=== PATIENT | female | born 1970 | race Caucasian/White ===

== ENCOUNTER 2021-05-11 15:32 | Observation (INO) | payer MEDICAID, SELFPAY ==
[2021-05-11 15:39] VITALS: BP 151/106; PULSE 129; RESP 18; TEMP 36.4; O2SAT 99
--- NOTE | 2021-05-11 15:41 | ECG_ITS ---
Measurements Intervals [place] Rate: 102 P: 66 GA: 146 QRS: 12 QRSD: 93 T: 72 QT: 348 QTc: 454 Interpretive Statements SINUS TACHYCARDIA DELAYED PRECORDIAL R/S TRANSITION INFERIOR INFARCT, AGE INDETERMINATE BORDERLINE T WAVE ABNORMALITY- HIGH LATERAL LEADS ABNORMAL ECG Electronically Signed On 05-11-2021 18:46:39 CDT by Braydon Das D.O.
[2021-05-11 16:32] LABS: Basophils Percent Auto 0.3 % (0.2-1.2); Eosinophils Absolute Auto 0.2 K/mm3 (0-0.3); Eosinophils Percent Auto 1.8 % (0-4.4); Hematocrit 45.4 % (37.0-47.0); Hemoglobin 15.2 g/dL (12.0-15.0); Immature Granulocyte Absolute 0.04 K/mm3 (0.00-0.031); Immature Granulocyte Percent A 0.4 % (0-0.5); Immature Platelet Fraction Pct 2.6 % (0.9-11.2); Lymphocytes Absolute Auto 2.58 K/mm3 (0.9-3.2); Lymphocytes Percent Auto 27.7 % (18.3-44.2); Mean Corpuscular HGB Conc 33.5 g/dl (32-36); Mean Corpuscular Hemoglobin 29.6 pg (26-34); Mean Corpuscular Volume 88.3 fl (80-100); Mean Platelet Volume 9.2 fl (7.4-10.4); Monocytes Absolute Auto 0.5 K/mm3 (0.1-0.6); Monocytes Percent Auto 5.5 % (2.6-8.5); Neutrophils Percent Auto 64.3 % (45.5-73.1); Platelet Count Result 306 k/mm3 (150-375); Red Blood Count 5.14 M/mm3 (4.2-5.4); Red Cell Distribution Width 12.2 % (11.5-14.5); White Blood Count 9.3 K/mm3 (4.5-10.0)
[2021-05-11 16:37] LABS: Add Urine Microscopic? YES; Appearance Urine Cloudy (Clear); Bacteria Urine 3+ /hpf; Bilirubin Urine Negative (Negative); Blood Urine 1+ (Negative); Color Urine Amber (Yellow); Glucose Urine UA Negative (Negative); Ketones Urine 1+ mg/dL (Negative); Leukocyte Esterase Ur 3+ LEU/UL (Negative); Mucus Urine Heavy /lpf; Nitrate Urine Positive (Negative); Protein Urine 1+ mg/dL (Negative); Specific Grav Ur 1.025 (1.001-1.035); Squamous Epithelial Cell Urine Many /hpf (Few); Urobilinogen Urine Negative mg/dL (<2.0); WBC Urine >75 /hpf
[2021-05-11 16:39] LABS: Ethanol < 10 mg/dL (<10)
[2021-05-11 16:40] LABS: Alanine Aminotransferase 17 U/L (4-35); Albumin Level 4.9 g/dL (3.5-5.1); Alkaline Phosphatase 69 U/L (38-126); Anion Gap 15 mmol/L (8-16); Aspartate Amino Transferase 28 U/L (14-36); Bilirubin,Total 0.8 mg/dL (0.2-1.3); Blood Urea Nitrogen 17 mg/dL (7-17); Calcium 10.3 mg/dL (8.4-10.2); Carbon Dioxide 24 mmol/L (22-30); Chloride 102 mmol/L (98-107); Estimated CRCL calculation 52 ml/min; Estimated Glomerular Filt Rate 53; Glucose 112 mg/dL (65-105); Potassium 3.9 mmol/L (3.4-5.0); Sodium 141 mmol/L (137-145)
[2021-05-11 17:08] LABS: Barbiturate Screen Urine Negative (Negative); Benzodiazepines Screen Urine Negative (Negative)
[2021-05-11 17:10] LABS: Cannabinoid Screen Urine Negative (Negative); Cocaine Screen Urine Negative (Negative); Methadone Screen Urine Negative (Negative); Opiate Screen Urine Negative (Negative); Phencyclidine Screen Urine Negative (Negative)
[2021-05-11 17:50] LABS: Lactic Acid Reflex 1.1 mmol/L (0.7-2.1)
[2021-05-11 18:00] LABS: Creatine Kinase 46 U/L (30-135)
--- NOTE | 2021-05-11 18:01 | ED.GENADULT ---
HPI - General Adult General Chief complaint: Psychiatric Symptoms Stated complaint: Psychiatric Evaluation Time Seen by Provider: 05/11/21 15:40 Source: patient Mode of arrival: ambulatory Limitations: altered mental status and clinical condition History of Present Illness HPI narrative: 50-year-old female Brought in by her son Number of varied complaints which basically boil down to her being increasingly agitated, anxious, and possibly unreliable in terms of doing self-care She currently lives with her son who is moving She gets very emotional when discussing this and contemplating the difficulty that she would have with visitation to her grandchildren Patient denies any current medical issues She says she does not smoke does not drink does not use any drugs including marijuana She says she has no thoughts of harming herself or anyone else Related Data Home Medications Medication Instructions Recorded Confirmed No Home Medications 05/11/21 05/11/21 Allergies Allergy/AdvReac Type Severity Reaction Status Date / Time No Known Allergies Allergy Verified 05/11/21 15:39 Review of Systems Review of Systems: ROS unobtainable: Yes unobtainable due to mental status (Limited) Constitutional: Constitutional: Denies fever(s) Cardiovascular: Cardiovascular: Denies chest pain Respiratory: Respiratory: Denies dyspnea Gastrointestinal: Gastrointestinal: Denies diarrhea and Denies vomiting PMFSH Social History Social History Substance use type: does not use Gender identity (if verbalized by the patient): Female Exam Const: General: cooperative and alert Orientation/consciousness: patient oriented x3 (alert) Other: Anxious, tearful HENMT: Head: normal to inspection, normocephalic and atraumatic Ears: external ears normal General nose exam: no epistaxis Eyes: Conjunctivae: conjunctivae normal EOM: EOMs intact bilaterally Neck: Neck: normal visual inspection, supple and no JVD Resp: Effort & Inspection: normal respiratory effort and not labored Auscultation: clear to auscultation bilaterally and other (BS =) Cardio: Rate: regular rate and tachycardic Rhythm: regular rhythm Heart sounds: no murmurs GI: GI Palp: Yes Soft to palpation, No Tenderness to palpation present (GI), No Guarding due to palpation present (GI) and No Rebound tenderness present Skin: General skin exam: normal color and no rashes or lesions noted Neuro: General: patient oriented x3 (alert) Speech: normal speech Extrem: General: normal to inspection and no pedal edema Psych: Affect: Anxious affect present Thought process: Tangential thought process present Thought content: No Suicidality present, No Homicidality present and No Hallucination(s) present Course Course Emergency Course: Work-up reveals UTI plus according to the lab on measurably high amphetamine levels Admitting to med telemetry for stabilization and sober reassessment for any psychiatric issues Vital Signs Vital signs: Vital Signs Temperature 36.4 C L 05/11/21 15:39 Pulse Rate 129 H 05/11/21 15:39 Respiratory Rate 18 05/11/21 15:39 Blood Pressure 151/106 H 05/11/21 15:39 Pulse Oximetry 99 05/11/21 15:39 Temperature 36.4 C L 05/11/21 15:39 Pulse Rate 129 H 05/11/21 15:39 Respiratory Rate 18 05/11/21 15:39 Blood Pressure 151/106 H 05/11/21 15:39 Pulse Oximetry 99 05/11/21 15:39 Medical Decision Making Vital Signs Vital Signs: Vital Signs Temperature 36.4 C L 05/11/21 15:39 Pulse Rate 129 H 05/11/21 15:39 Respiratory Rate 18 05/11/21 15:39 Blood Pressure 151/106 H 05/11/21 15:39 Pulse Oximetry 99 05/11/21 15:39 Temperature 36.4 C L 05/11/21 15:39 Pulse Rate 129 H 05/11/21 15:39 Respiratory Rate 18 05/11/21 15:39 Blood Pressure 151/106 H 05/11/21 15:39 Pulse Oximetry 99 05/11/21 15:39 Lab Data Result diagrams: 05/11/21 16:19 05/11/21 16:19 Labs
[2021-05-11 18:08] LABS: Troponin I < 0.012 ng/mL (0.000-0.034)
[2021-05-11] MEDS: LACTATED RINGERS 1,000 ML 999 ML IV CONT (18:11)
[2021-05-11] MEDS: HALOPERIDOL LACTATE 5 MG/ML VIAL IV PUSH (18:11)
[2021-05-11] MEDS: LORazepam INJ (*CRX) 2 MG/ML VIAL 1 MG IV PUSH (18:11)
[2021-05-11 19:49] VITALS: BP 142/84; PULSE 84; RESP 17; O2SAT 98
--- NOTE | 2021-05-11 19:56 | ADMGEN ---
This patient, Marce Del Rio, was admitted to 2 Medical Room 261-01. Patient/family oriented to hospital policies and general routines including ID bracelet, bed and alarms, visiting hours, pain management, procedures, bathroom and other care routines, personal items, smoking policy, room service/diet, and visiting hours. Information on how to activate the Rapid Response Team has been discussed. Patient/Family are encouraged to report perceived risks to care and to ask questions if they do not understand what they are told or what they should do.
[2021-05-11] MEDS: LACTATED RINGERS 1,000 ML 125 ML IV CONT (20:09)
--- NOTE | 2021-05-11 21:10 | PM.IMHP ---
H&P: HPI History of Present Illness Date/Time: 05/11/21 21:10 this is a 50 year old female patient who resides in the basement of her son. The patient has a history of substance abuse and possibly mental disorder. More agitated, anxious and paranoid. The son stated that his mother's been acting bizarre since he has decided that he is going to move. The patient has history of using methamphetamines but the son was not aware that the patient is currently using. According the patient she has not used since Thursday. The patient stated that she does not smoke and does not drink or use any drugs however her urine drug screen too numerous to determine. Lactated Ringer's, Rocephin, Haldol and lorazepam in the emergency room. When I spoke to the patient she was falling asleep during the interview. To be positive for UTI. The patient is being admitted to inpatient services on the date of service of 05/11/2021. Chief Complaint: Anxiety Review of Systems Review of Systems: ROS unobtainable: Yes unobtainable due to mental status PMFSH Past Medical History Medical History Anxiety Surgical History Surgical History History of partial hysterectomy Family History Family History (Updated 05/11/21 @ 21:15 by Chante Ramesh NP) Unknown Family history unknown Social History Social History (Updated 05/11/21 @ 21:17 by Chante Ramesh NP) Social History: The patient stated that she does not use any drugs however the son stated that she does have history of amphetamine use. Amphetamines were found in her urine drug screen. The patient has a son and a daughter. The son is the durable power divorce attorney. The patient lives with the son in his basement. The patient is a full code. Patient is disabled. The patient is . Smoking status: Never smoker Alcohol intake: unknown Substance use type: amphetamines Last use: 05/05/21 Gender identity (if verbalized by the patient): Female Spiritual care concerns: No Meds Home Medications and Allergies Home Medications Medication Instructions Recorded Confirmed Type No Home Medications 05/11/21 05/11/21 History Allergies Allergy/AdvReac Type Severity Reaction Status Date / Time No Known Allergies Allergy Verified 05/11/21 15:39 Vital Signs Vital Signs - 24 hr 05/11/21 15:39 05/11/21 19:49 Temperature 36.4 C L Pulse Rate 129 H 84 Respiratory Rate 18 17 Blood Pressure 151/106 H 142/84 H Pulse Oximetry 99 98 Exam Const: General: cooperative, comfortable, no acute distress, well developed and lethargic Nutritional Appearance: overweight Orientation/consciousness: oriented to person Limitations: altered mental status Other: The patient had been sedated in the emergency room HENMT: Head: normal to inspection, No palpable skull fracture present, normocephalic and atraumatic Ears: hearing grossly normal bilaterally and external ears normal General nose exam: Normal external nose present and Normal nares present Eyes: General: appearance normal, both eyes and all related structures Alignment and Position: alignment normal Periorbital: periorbital findings normal Eyelids: eyelids normal Conjunctivae: conjunctivae normal Sclera: sclerae normal Cornea: corneas normal Pupils: Equal, round and reactive pupils present EOM: EOMs intact bilaterally Chest: Chest palpation & inspection: normal inspection of the chest Resp: Effort & Inspection: normal respiratory effort Auscultation: clear to auscultation bilaterally Percussion: percussion normal Cardio: Palpation: normal PMI Rate: regular rate Rhythm: regular rhythm Heart sounds: S1 normal heart sound present and S2 normal heart sound present Peripheral pulses: Peripheral pulses 2+ throughout GI: Inspection: normal to inspection Percussion: Yes normal to percussion Auscultation: normal b
[2021-05-11 21:39] VITALS: BP 134/55; PULSE 87; RESP 18; TEMP 36; O2SAT 100; BMI 36.2
[2021-05-12] VITALS (11 sets, daily range): BP systolic 100–124; BP diastolic 60–72; PULSE 58–78; RESP 16–18; TEMP 35.9–36.5; O2SAT 95–99
[2021-05-12 05:30] LABS: Basophils Percent Auto 0.6 % (0.2-1.2); Eosinophils Absolute Auto 0.2 K/mm3 (0-0.3); Eosinophils Percent Auto 3.1 % (0-4.4); Hematocrit 39.3 % (37.0-47.0); Hemoglobin 12.6 g/dL (12.0-15.0); Immature Granulocyte Absolute 0.03 K/mm3 (0.00-0.031); Immature Granulocyte Percent A 0.5 % (0-0.5); Lymphocytes Absolute Auto 2.23 K/mm3 (0.9-3.2); Mean Corpuscular HGB Conc 32.1 g/dl (32-36); Mean Corpuscular Hemoglobin 29.2 pg (26-34); Mean Corpuscular Volume 91.2 fl (80-100); Mean Platelet Volume 8.7 fl (7.4-10.4); Monocytes Absolute Auto 0.4 K/mm3 (0.1-0.6); Monocytes Percent Auto 6.9 % (2.6-8.5); Neutrophils Absolute Auto 3.4 K/mm3 (1.3-6.7); Neutrophils Percent Auto 53.9 % (45.5-73.1); Platelet Count Result 211 k/mm3 (150-375); Red Blood Count 4.31 M/mm3 (4.2-5.4); Red Cell Distribution Width 12.1 % (11.5-14.5); White Blood Count 6.4 K/mm3 (4.5-10.0)
[2021-05-12 05:43] LABS: Alanine Aminotransferase 12 U/L (4-35); Albumin Level 3.8 g/dL (3.5-5.1); Alkaline Phosphatase 51 U/L (38-126); Anion Gap 7 mmol/L (8-16); Aspartate Amino Transferase 21 U/L (14-36); Bilirubin,Total 0.6 mg/dL (0.2-1.3); Blood Urea Nitrogen 14 mg/dL (7-17); Calcium 9.4 mg/dL (8.4-10.2); Carbon Dioxide 28 mmol/L (22-30); Chloride 105 mmol/L (98-107); Estimated CRCL calculation 62 ml/min; Estimated Glomerular Filt Rate 59; Glucose 83 mg/dL (65-105); Lactic Acid Reflex 0.8 mmol/L (0.7-2.1); Magnesium 1.5 mg/dL (1.6-2.3); Potassium 4.1 mmol/L (3.4-5.0); Sodium 140 mmol/L (137-145)
[2021-05-12] MEDS: LACTATED RINGERS 1,000 ML 125 ML IV CONT ×3 (05:47→23:25)
[2021-05-12] MEDS: ONDANSETRON INJ 4 MG/2 ML VIAL IV PUSH (11:45)
--- NOTE | 2021-05-12 13:56 | PM.IMPN ---
Progress Note: A&P Assessment and Plan (1) Anxiety: Code(s): F41.9 - Anxiety disorder, unspecified Status: Chronic Assessment and Plan: The son stated that his mother has been more anxious since he told her that he was going to be moving. Crisis team once medically cleared (2) Substance-induced disorder: Code(s): F19.99 - Other psychoactive substance use, unspecified with unspecified psychoactive substance-induced disorder Status: Acute Assessment and Plan: Patient was positive for amphetamines continue to monitor (3) UTI (urinary tract infection): Code(s): N39.0 - Urinary tract infection, site not specified Status: Acute Assessment and Plan: Continue with Rocephin, urine cultures are pending Subjective Date/time seen: 05/12/21 13:56 Interval history: 50 year old female patient who resides in the basement of her son. The patient has a history of substance abuse and possibly mental disorder. More agitated, anxious and paranoid, Pt is crying in the room admitted with anxiety and UTI. Review of Systems Review of Systems: All systems reviewed & are unremarkable except as noted in HPI and below Exam Const: General: cooperative, comfortable and other (anxious sad crying ) Nutritional Appearance: overweight Orientation/consciousness: oriented to person Chest: Chest palpation & inspection: normal inspection of the chest Resp: Effort & Inspection: normal respiratory effort Auscultation: clear to auscultation bilaterally Cardio: Palpation: normal PMI Rate: regular rate Rhythm: regular rhythm Heart sounds: S1 normal heart sound present and S2 normal heart sound present Peripheral pulses: Peripheral pulses 2+ throughout GI: Inspection: normal to inspection Auscultation: normal bowel sounds Neuro: General: oriented to person Cranial nerves: Yes Equal, round and reactive pupils present and Yes Normal hearing present Sensory Exam: normal sensation Extrem: General: normal to inspection Right upper extremity: normal to inspection Left upper extremity: normal to inspection Right lower extremity: normal to inspection Left lower extremity: normal to inspection Psych: Appearance: grossly normal Affect: normal affect Attitude: cooperative Insight: Poor insight present (Psych) Judgement: Poor judgement present (Psych) Objective Data Vital Signs Vital Signs: Vital Signs - 24 hr 05/11/21 15:39 05/11/21 19:49 05/11/21 21:39 Temperature 36.4 C L 36.0 C L Pulse Rate 129 H 84 87 Respiratory Rate 18 17 18 Blood Pressure 151/106 H 142/84 H 134/55 L Pulse Oximetry 99 98 100 05/12/21 00:00 05/12/21 04:00 05/12/21 06:00 Temperature 36.1 C L Pulse Rate 73 58 L 75 Respiratory Rate 18 Blood Pressure 124/65 Pulse Oximetry 98 05/12/21 08:00 05/12/21 09:45 05/12/21 12:00 Temperature Pulse Rate 77 78 Respiratory Rate 18 Blood Pressure Pulse Oximetry 98 Intake/Output Intake/Output: Intake & Output 05/09/21 05/10/21 05/11/21 05/12/21 23:59 23:59 23:59 23:59 Intake Total 1050 1050 Output Total 500 Balance 1050 550 Meds/Results Medications: Active Medications Generic Name Dose Route Start Last Admin Trade Name Freq PRN Reason Stop Dose Admin Acetaminophen 650 mg 05/11/21 18:08 Acetaminophen 325 Mg Tablet PO Q4H PRN Mild Pain (1-3) or Fever Haloperidol Lactate 5 mg 05/11/21 18:11 Haloperidol Lactate 5 Mg/Ml Vial IM BID PRN Agitation Lactated Ringer's 1,000 mls @ 125 mls/hr 05/11/21 18:10 05/12/21 10:15 Lr - Lactated Ringers Iv IV CONT 125 mls/hr .Q8H MARTA Infusion Ceftriaxone Sodium/Dextrose 1 gm in 50 mls @ 100 mls/hr 05/12/21 09:00 05/12/21 10:15 Rocephin 1 Gm/D5w 50 Ml IVPB Infused QAM MARTA Infusion Lorazepam 1 mg 05/11/21 18:08 Lorazepam Inj (*Crx) 2 Mg/Ml Vial IV PUSH Q6H PRN Anxiety Ondansetron HCl 4 mg 05/12/21 11:28 05/12/21 11:45
[2021-05-13] VITALS (12 sets, daily range): BP systolic 108–140; BP diastolic 62–80; PULSE 56–80; RESP 16–18; TEMP 35.9–36.8; O2SAT 97–100
[2021-05-13 05:28] LABS: Hematocrit 38.3 % (37.0-47.0); Hemoglobin 12.3 g/dL (12.0-15.0); Mean Corpuscular HGB Conc 32.1 g/dl (32-36); Mean Corpuscular Hemoglobin 29.5 pg (26-34); Mean Corpuscular Volume 91.8 fl (80-100); Mean Platelet Volume 8.8 fl (7.4-10.4); Platelet Count Result 209 k/mm3 (150-375); Red Blood Count 4.17 M/mm3 (4.2-5.4); Red Cell Distribution Width 12.2 % (11.5-14.5); White Blood Count 6.3 K/mm3 (4.5-10.0)
[2021-05-13 05:48] LABS: Anion Gap 4 mmol/L (8-16); Blood Urea Nitrogen 11 mg/dL (7-17); Calcium 9.3 mg/dL (8.4-10.2); Carbon Dioxide 32 mmol/L (22-30); Chloride 104 mmol/L (98-107); Estimated CRCL calculation 62 ml/min; Estimated Glomerular Filt Rate 59; Glucose 85 mg/dL (65-105); Potassium 4.2 mmol/L (3.4-5.0); Sodium 140 mmol/L (137-145)
[2021-05-13] MEDS: LACTATED RINGERS 1,000 ML 125 ML IV CONT ×3 (08:10→20:30)
[2021-05-13] MEDS: ONDANSETRON INJ 4 MG/2 ML VIAL IV PUSH ×2 (08:34→20:27)
--- NOTE | 2021-05-13 12:09 | PM.IMPN ---
Progress Note: A&P Assessment and Plan (1) Anxiety: Code(s): F41.9 - Anxiety disorder, unspecified Status: Chronic Assessment and Plan: The son stated that his mother has been more anxious since he told her that he was going to be moving.Pt vivi need to follow with psych facility as outpatient once medically cleared. (2) Substance-induced disorder: Code(s): F19.99 - Other psychoactive substance use, unspecified with unspecified psychoactive substance-induced disorder Status: Acute Assessment and Plan: Patient was positive for amphetamines states she takes them on occasions (3) UTI (urinary tract infection): Code(s): N39.0 - Urinary tract infection, site not specified Status: Acute Assessment and Plan: Continue with Rocephin,UC positive or ecoli Subjective Date/time seen: 05/13/21 12:09 Interval history: 50 year old female patient who resides in the basement of her son. The patient has a history of substance abuse and possibly mental disorder. Pt is calmer today, pt states she is homeless. Pt will need to follow with psych as outpatient once medically cleared. Review of Systems Review of Systems: All systems reviewed & are unremarkable except as noted in HPI and below ROS unobtainable: Yes unobtainable due to mental status Exam Const: General: cooperative, comfortable and other (resting ) Nutritional Appearance: overweight Orientation/consciousness: oriented to person Chest: Chest palpation & inspection: normal inspection of the chest Resp: Effort & Inspection: normal respiratory effort Auscultation: clear to auscultation bilaterally Percussion: percussion normal Cardio: Palpation: normal PMI Rate: regular rate Rhythm: regular rhythm Heart sounds: S1 normal heart sound present and S2 normal heart sound present Peripheral pulses: Peripheral pulses 2+ throughout GI: Inspection: normal to inspection Auscultation: normal bowel sounds Skin: General skin exam: normal color Lesions: no lesions Rashes: no rashes Trauma: no lacerations or abrasions Wounds: no wounds Hair: normal Nails: normal Neuro: General: oriented to person Cranial nerves: Yes Equal, round and reactive pupils present and Yes Normal hearing present Sensory Exam: normal sensation Extrem: General: normal to inspection Right upper extremity: normal to inspection Left upper extremity: normal to inspection Right lower extremity: normal to inspection Left lower extremity: normal to inspection Psych: Appearance: grossly normal Affect: normal affect Attitude: cooperative Insight: Poor insight present (Psych) Judgement: Poor judgement present (Psych) Objective Data Vital Signs Vital Signs: Vital Signs - 24 hr 05/12/21 14:00 05/12/21 16:00 05/12/21 18:00 Temperature 35.9 C L 36.5 C Pulse Rate 72 67 71 Respiratory Rate 16 17 Blood Pressure 114/72 112/60 Pulse Oximetry 97 95 05/12/21 21:30 05/12/21 22:00 05/13/21 00:00 Temperature 36.4 C Pulse Rate 67 75 56 L Respiratory Rate 18 Blood Pressure 100/62 Pulse Oximetry 99 05/13/21 02:00 05/13/21 04:00 05/13/21 06:00 Temperature 36.1 C L 35.9 C L Pulse Rate 64 60 62 Respiratory Rate 18 18 Blood Pressure 108/62 116/76 Pulse Oximetry 98 100 05/13/21 08:00 Temperature Pulse Rate 62 Respiratory Rate Blood Pressure Pulse Oximetry Intake/Output Intake/Output: Intake & Output 05/10/21 05/11/21 05/12/21 05/13/21 23:59 23:59 23:59 23:59 Intake Total 1050 3710 1250 Output Total 800 850 Balance 1050 2910 400 Meds/Results Medications: Active Medications Generic Name Dose Route Start Last Admin Trade Name Freq PRN Reason Stop Dose Admin Acetaminophen 650 mg 05/11/21 18:08 Acetaminophen 325 Mg Tablet PO Q4H PRN Mild Pain (1-3) or Fever Haloperidol Lactate 5 mg 05/11/21 18:11 Haloperidol Lactate 5 Mg/Ml Vial IM BID PRN Agitation Lactated Ringer's 1,0
[2021-05-13] MEDS: LORazepam INJ (*CRX) 2 MG/ML VIAL 1 MG IV PUSH ×2 (13:29→23:05)
[2021-05-13] MEDS: ACETAMINOPHEN 325 MG TABLET 650 MG PO (20:25)
[2021-05-14] VITALS (10 sets, daily range): BP systolic 108–129; BP diastolic 56–77; PULSE 58–93; RESP 16–22; TEMP 36.1–36.5; O2SAT 97–100
[2021-05-14] MEDS: LACTATED RINGERS 1,000 ML 125 ML IV CONT (04:29)
[2021-05-14] MEDS: ONDANSETRON INJ 4 MG/2 ML VIAL IV PUSH (12:36)
--- NOTE | 2021-05-14 14:39 | PM.DS ---
DS: Admitting Diagnosis Admitting Diagnosis Admitting Diagnosis: Chief Complaint: Anxiety DS: Discharge Diagnosis Discharge Diagnosis (1) Anxiety: Code(s): F41.9 - Anxiety disorder, unspecified Status: Chronic Assessment and Plan: The son stated that his mother has been more anxious since he told her that he was going to be moving.Pt vivi need to follow with psych facility as outpatient once medically cleared. (2) Substance-induced disorder: Code(s): F19.99 - Other psychoactive substance use, unspecified with unspecified psychoactive substance-induced disorder Status: Acute Assessment and Plan: Patient was positive for amphetamines states she takes them on occasions (3) UTI (urinary tract infection): Code(s): N39.0 - Urinary tract infection, site not specified Status: Acute Assessment and Plan: Continue with Rocephin,UC positive or ecoli DS: Summary Hospital Course Reason for hospitalization: this is a 50 year old female patient who resides in the basement of her son. The patient has a history of substance abuse and possibly mental disorder. More agitated, anxious and paranoid. The son stated that his mother's been acting bizarre since he has decided that he is going to move. The patient has history of using methamphetamines but the son was not aware that the patient is currently using. According the patient she has not used since Thursday. The patient stated that she does not smoke and does not drink or use any drugs however her urine drug screen too numerous to determine. Lactated Ringer's, Rocephin, Haldol and lorazepam in the emergency room. When I spoke to the patient she was falling asleep during the interview. To be positive for UTI. The patient is being admitted to inpatient services on the date of service of 05/11/2021. Chief Complaint: Anxiety Hospital Course: Patient remains clinically stable has UTI with E coli sensitive to Rocephin and was treated, will discharge the patient on cefdinir, patient will follow-up with the [facility], there was a concern for being homeless her son will apple picker and take her home. will discharge the patient today Status at Discharge Functional status at discharge: independent ambulation Overall status at discharge: patient is back to baseline Time Spent with Patient Time attestation: Total time spent providing and/or coordinating discharge services: Patient was seen and examined at the time of the discharge Condition at discharge is stable Code status: Full code. Time spent preparing discharge summary, discharge medications, discussing discharge planning with community case manager and patient is 35 minutes. Time spent: Greater than 30 minutes Exam Narrative: Exam Narrative: Patient is comfortable, NAD HEENT: eyes are clear and none icteric LUNGS:CTA HEART: RR S1S2 ABD: BS+, Soft and nontender Lower extremities: no edema SKIN: nonjaundiced Neuro: grossly intact. DS: Data Data Completed and Pending Labs on day of discharge: Preliminary micro results at discharge 05/11/21 22:25 Blood Culture - Preliminary Blood 05/11/21 22:25 Blood Culture - Preliminary Blood Discharge Plan Discharge Attending physician on discharge: Delia Nicole Consulting providers: Amanda Arriaga ; Chante Ramesh ; Braydon Das Discharging Clinician: Delia Nicole Patient Disposition: Home, Self-Care Activity: as tolerated Diet: heart healthy Discharge Instructions: Patient to call [facility] as soon as possible for a psychiatric evaluation and follow up, if any symptoms redevelop to go to nearest ER. Per Care Coordination: Please establish with a primary care physician and a behavioral health physician at discharge. We discussed establishing with [facility], they are located at [address] [place] [address]. Please call and make an appointment at [phone]
[2021-05-14] MEDS: LORazepam INJ (*CRX) 2 MG/ML VIAL 1 MG IV PUSH (15:50)
--- NOTE | 2021-05-14 21:47 | PC.NURSE ---
attempted to call son Chacho again without answer, message left that we are waiting for patient to be picked up. informed patient and she was on the phone with her daughter who lives in [place], and daughter also states she is attempting to find her brother. nursing loading and unloading supervisor Adeel Garrett informed of same.
--- NOTE | 2021-05-14 22:29 | PC.NURSE ---
Chante Ramesh informed that patient remains a patient due to the inability to obtain someone to transport patient home. son not returning calls at this time.
--- NOTE | 2021-05-15 01:00 | PC.NURSE ---
0045, called from hat blocking operator that son butch is at front entrance to curing pickling packer his mother. allowed son to room. states he wasn't aware that he had to come tonight. unclear where miscommunication arose.
== END 2021-05-15 01:00 | disposition home or self-care (01) ==
LOC: ANHED 18:04 → ANH2MED 18:56
PROVIDERS: Nurse Practitioner; Admitting Provider Family Medicine; Emergency Provider Emergency Medicine; Visit Provider Family Medicine
DX: F41.9 Anxiety disorder, unspecified (principal); N39.0 Urinary tract infection, site not specified; B96.20 Unspecified Escherichia coli [E. coli] as the cause of diseases classified elsewhere; F15.99 Other stimulant use, unspecified with unspecified stimulant-induced disorder; F19.99 Other psychoactive substance use, unspecified with unspecified psychoactive substance-induced disorder; R41.82 Altered mental status, unspecified; Z20.822 Contact with and (suspected) exposure to COVID-19
CPT/HCPCS: 36415; 80048; 80053; 80307; 81001; 81025; 82550; 83605; 83735; 84443; 84484; 85025; 85027; 85055; 87040; 87077; 87086; 87088; 87186; 87426; 93005; 96361; 96365; 96375; 96376; 99285; A9270; C9803; G0378; G0379; J0696; J1630; J2060; J2405; J7120

== ENCOUNTER 2021-09-24 00:23 | Emergency (ER) | payer OTHER, SELFPAY ==
[2021-09-24 00:22] VITALS: BP 141/100; PULSE 73; RESP 18; TEMP 36.8; O2SAT 100
[2021-09-24] MEDS: SODIUM CHLORIDE 0.9% IV 1,000 ML 999 ML IV CONT (00:35)
--- NOTE | 2021-09-24 00:44 | ED.NAVMDI ---
HPI - Nausea/Vomiting/Diarrhea General Chief complaint: Urogenital-Female Stated complaint: n/v, back pain, dark urine Time Seen by Provider: 09/24/21 00:24 Source: patient and EMS Mode of arrival: EMS Limitations: no limitations History of Present Illness HPI Narrative: 50-year-old female with history of OCD, depression recently treated for trichomonas with Flagyl states over the past few days she has been having nausea vomiting increased dark urine and right flank pain. She went to urgent care and they thought she was having symptoms because it was interact the Flagyl was interacting with her meal. So she decided to stop taking p.o. However prior to arrival she had projectile vomiting. She has been unable to hold down foods for all day no fever, does complain of right flank pain radiating to her right shoulder blade worse with palpation improved with nothing. She has not been on any other antibiotic for her urine she denies alcohol use. She arrives afebrile mild distress uncomfortable. Pain is described as constant, aching. Related Data Allergies Allergy/AdvReac Type Severity Reaction Status Date / Time No Known Allergies Allergy Verified 05/11/21 15:39 Review of Systems Review of Systems: CONSTITUTIONAL: no fever, no weight loss, no confusion EYES: no vision changes, no eye pain ENT: no rhinorrhea, no sore throat, no difficulty swallowing CARDIOVASCULAR: no chest pain, no leg edema, no palpitations RESPIRATORY: no cough, no shortness of breath, no hemoptysis GASTROINTESTINAL: no abdominal pain, positive nausea, positive vomiting, no diarrhea GENITOURINARY: R flank pain, no dysuria, positive for hematuria SKIN: no rash, no jaundice MUSCULOSKELETAL: no back pain, no trauma. NEUROLOGIC: No headache, no dizziness, no focal weakness PSYCHIATRIC: No hallucinations, no suicidal ideation PMFSH Past Medical History Medical History Anxiety Surgical History Surgical History History of partial hysterectomy Family History Family History Unknown Family history unknown Social History Social History Social History: The patient stated that she does not use any drugs however the son stated that she does have history of amphetamine use. Amphetamines were found in her urine drug screen. The patient has a son and a daughter. The son is the durable power pneumatic tool repairer. The patient lives with the son in his basement. The patient is a full code. Patient is disabled. The patient is . Smoking status: Never smoker Alcohol intake: unknown Substance use type: amphetamines Last use: 05/05/21 Gender identity (if verbalized by the patient): Female Spiritual care concerns: No Exam Narrative: General: alert, afebrile, answering all questions appropriately Head: normocephalic, atraumatic Eyes: EOMI bilaterally, anicteric, no injection ENT: moist mucous membranes, oropharynx patent, no rhinorrhea Neck: supple, trachea midline, no JVD Chest: equal chest rise bilaterally, no chest wall trauma noted Lungs: clear to auscultation bilaterally, respirations unlabored CV: regular rate, no RABIA B, calf size equal bilaterally Abd: soft, non-distended, non-tender, no rebound, no gaurding, negative Barroso's : no CVA tenderness B, bladder non-distended Back: no lumbar bony tenderness. paraspinal muscles without spasm EXT: no deformity noted, moving all extremities equally Skin: warm, dry, no pallor Neuro: alert, oriented x 3; CN 2-12 grossly intact, no dysarthria Psych: affect appropriate, though content normal Course Course Emergency Course: Labs normal, electrolytes normal, patient is not dehydrated, no vomiting in the ED, abdomen soft nondistended nontender. Most likely vomiting related to food poisoning Inte
[2021-09-24 01:01] LABS: Basophils Percent Auto 0.3 % (0.2-1.2); Eosinophils Absolute Auto 0.1 K/mm3 (0-0.3); Eosinophils Percent Auto 1.5 % (0-4.4); Hematocrit 40.8 % (37.0-47.0); Hemoglobin 13.7 g/dL (12.0-15.0); Immature Granulocyte Absolute 0.05 K/mm3 (0.00-0.031); Immature Granulocyte Percent A 0.6 % (0-0.5); Lymphocytes Absolute Auto 1.21 K/mm3 (0.9-3.2); Lymphocytes Percent Auto 13.8 % (18.3-44.2); Mean Corpuscular HGB Conc 33.6 g/dl (32-36); Mean Corpuscular Hemoglobin 31.2 pg (26-34); Mean Corpuscular Volume 92.9 fl (80-100); Mean Platelet Volume 8.9 fl (7.4-10.4); Monocytes Absolute Auto 0.4 K/mm3 (0.1-0.6); Monocytes Percent Auto 4.8 % (2.6-8.5); Neutrophils Absolute Auto 6.9 K/mm3 (1.3-6.7); Platelet Count Result 213 k/mm3 (150-375); Red Blood Count 4.39 M/mm3 (4.2-5.4); Red Cell Distribution Width 12.7 % (11.5-14.5); White Blood Count 8.8 K/mm3 (4.5-10.0)
[2021-09-24] MEDS: ONDANSETRON INJ 4 MG/2 ML VIAL IV PUSH (01:02)
[2021-09-24] MEDS: FAMOTIDINE 20 MG/2 ML VIAL IV PUSH (01:02)
[2021-09-24 01:08] VITALS: BP 123/79
[2021-09-24 01:12] LABS: Add Urine Microscopic? YES; Appearance Urine Cloudy (Clear); Bacteria Urine Trace /hpf; Bilirubin Urine Negative (Negative); Blood Urine Negative (Negative); Color Urine Amber (Yellow); Glucose Urine UA Negative (Negative); Ketones Urine Negative (Negative); Leukocyte Esterase Ur 1+ LEU/UL (Negative); Mucus Urine Rare /lpf; Nitrate Urine Negative (Negative); Protein Urine Negative (Negative); RBC Urine 0-2 /hpf (0-2); Specific Grav Ur 1.028 (1.001-1.035); Squamous Epithelial Cell Urine Many /hpf (Few); Urobilinogen Urine Negative mg/dL (<2.0); WBC Urine 0-3 /hpf
[2021-09-24 01:30] LABS: Alanine Aminotransferase 24 U/L (4-35); Albumin Level 4.3 g/dL (3.5-5.1); Alkaline Phosphatase 48 U/L (38-126); Anion Gap 7 mmol/L (8-16); Aspartate Amino Transferase 34 U/L (14-36); Bilirubin,Total 0.5 mg/dL (0.2-1.3); Blood Urea Nitrogen 13 mg/dL (7-17); Calcium 9.3 mg/dL (8.4-10.2); Carbon Dioxide 27 mmol/L (22-30); Chloride 103 mmol/L (98-107); Estimated CRCL calculation 86 ml/min; Estimated Glomerular Filt Rate > 60; Glucose 111 mg/dL (65-110); Lipase 130 U/L (23-300); Potassium 3.9 mmol/L (3.4-5.0); Sodium 137 mmol/L (137-145)
[2021-09-24 01:31] LABS: Barbiturate Screen Urine Negative (Negative)
[2021-09-24 01:56] LABS: Amphetamine Screen Urine Negative (Negative); Benzodiazepines Screen Urine Negative (Negative); Cannabinoid Screen Urine Negative (Negative); Cocaine Screen Urine Negative (Negative); Methadone Screen Urine Negative (Negative); Opiate Screen Urine Negative (Negative); Phencyclidine Screen Urine Negative (Negative)
[2021-09-24 03:05] VITALS: BP 118/73; PULSE 74; RESP 18; O2SAT 100
== END 2021-09-24 03:06 | disposition home or self-care (01) ==
PROVIDERS: Emergency Provider Emergency Medicine; PCP Internal Medicine
DX: R11.2 Nausea with vomiting, unspecified (principal)
CPT/HCPCS: 36415; 80053; 80307; 81001; 83690; 85025; 96361; 96374; 96375; 99284; J2405; J7030